=== PATIENT | female | born 1945 | race Caucasian/White ===

== ENCOUNTER 2019-11-19 06:39 | Outpatient (CLI) | payer MEDICARE, SELFPAY ==
[2019-11-19 07:30] LABS: Eosinophils Absolute Auto 0.1 K/mm3 (0-0.3); Eosinophils Percent Auto 2.6 % (0-4.4); Hematocrit 33.1 % (37.0-47.0); Immature Granulocyte Absolute 0.01 K/mm3 (0.00-0.031); Immature Granulocyte Percent A 0.3 % (0-0.5); Lymphocytes Absolute Auto 1.42 K/mm3 (0.9-3.2); Lymphocytes Percent Auto 36.4 % (18.3-44.2); Mean Corpuscular HGB Conc 33.2 g/dl (32-36); Mean Corpuscular Hemoglobin 29.6 pg (26-34); Mean Corpuscular Volume 89.2 fl (80-100); Mean Platelet Volume 8.9 fl (7.4-10.4); Monocytes Absolute Auto 0.4 K/mm3 (0.1-0.6); Monocytes Percent Auto 10.3 % (2.6-8.5); Neutrophils Absolute Auto 1.9 K/mm3 (1.3-6.7); Neutrophils Percent Auto 49.4 % (45.5-73.1); Platelet Count Result 263 k/mm3 (150-375); Red Blood Count 3.71 M/mm3 (4.2-5.4); Red Cell Distribution Width 12.8 % (11.5-14.5); White Blood Count 3.9 K/mm3 (4.5-10.0)
[2019-11-19 07:44] LABS: Alanine Aminotransferase 30 U/L (4-35); Albumin Level 4.2 g/dL (3.5-5.1); Alkaline Phosphatase 45 U/L (38-126); Aspartate Amino Transferase 35 U/L (14-36); Bilirubin,Total 0.2 mg/dL (0.2-1.3); Blood Urea Nitrogen 17 mg/dL (7-17); Calcium 8.8 mg/dL (8.4-10.2); Carbon Dioxide 28 mmol/L (22-30); Chloride 103 mmol/L (98-107); Cholesterol 196 mg/dL (0-200); Estimated Glomerular Filt Rate > 60; Glucose 88 mg/dL (65-105); HDL Direct 48 mg/dL; Potassium 3.8 mmol/L (3.4-5.0); Sodium 136 mmol/L (137-145); Triglycerides 155 mg/dL (<150)
[2019-11-19 07:55] LABS: LDL Cholesterol Direct 117 mg/dL
== END 2019-11-19 06:40 | disposition home or self-care (01) ==
PROVIDERS: PCP Family Medicine; Visit Provider Family Medicine
DX: I10 Essential (primary) hypertension (principal); E78.2 Mixed hyperlipidemia
CPT/HCPCS: 36415; 80053; 80061; 85025

== ENCOUNTER 2021-01-06 00:18 | Day surgery (SDC) | payer MEDICARE, SELFPAY ==
[2021-01-05 16:26] VITALS: BMI 30.7
[2021-01-06] VITALS (9 sets, daily range): BP systolic 123–174; BP diastolic 65–84; PULSE 59–103; RESP 12–20; TEMP 36.7–36.9; O2SAT 95–100; BMI 31.4
--- NOTE | 2021-01-06 08:00 | ECG_ITS ---
Measurements Intervals [place] Rate: 94 P: ID: 0 QRS: 43 QRSD: 89 T: -1 QT: 349 QTc: 439 Interpretive Statements ATRIAL FIBRILLATION BASELINE ARTIFACT- I, II, III, AVR, AVL ABNORMAL ECG Electronically Signed On 01-06-2021 9:40:42 CDT by Jett Haddad D.O.
--- NOTE | 2021-01-06 09:00 | WPDHPUPDATE1 ---
History and Physical Update Update Date/Time: 01/06/21 09:00 am History and Physical has been reviewed, including an updated exam of the patient. There are NO changes in the patient's condition. Risks, benefits, and alternatives have been discussed and questions answered. Patient agrees to proceed with procedure.
--- NOTE | 2021-01-06 09:00 | WPDMODSED ---
Moderate Sedation Note-Pt Data Patient Data Allergies Allergy/AdvReac Type Severity Reaction Status Date / Time Iodinated Contrast Media Allergy Intermediate Hives and Verified 01/06/21 08:52 swelling Home Medications Medication Instructions Recorded Confirmed Type fenofibrate 160 mg tablet 160 mg PO DAILY #90 tablet 09/24/20 01/05/21 Rx rivaroxaban 20 mg tablet 20 mg PO DAILY #30 tablet 10/26/20 01/05/21 Rx ropinirole 0.5 mg tablet 0.5 mg PO BID #180 tablet 11/09/20 01/05/21 Rx acetaminophen 300 mg-codeine 30 mg 1 tablet PO Q6H PRN #120 tablet 12/21/20 01/05/21 Rx tablet DILT-XR 180 mg PO DAILY 01/05/21 01/05/21 History alprazolam 0.25 mg PO TID 01/05/21 01/05/21 History amiodarone 200 mg PO BID 01/05/21 01/05/21 History cetirizine [Zyrtec] 10 mg PO DAILY PRN 01/05/21 01/05/21 History fluticasone propionate [Flonase] 1 spray INTRANASAL DAILY 01/05/21 01/05/21 History metoprolol succinate 50 mg PO DAILY 01/05/21 01/05/21 History psyllium husk [Metamucil] 1 tbsp PO DAILY 01/05/21 01/05/21 History Current Medications: Active Medications Sodium Chloride (Normal Saline Iv) 500 mls @ 30 mls/hr IV CONT .[id number] MARITA Sedation/Anesthesia: No previous sedation/anesthesia problems (including family history). [facility] Past Medical History Medical History Arthritis Arthritis Benign essential HTN Bilateral primary osteoarthritis of knee Chronic pain Chronic pain syndrome Essential (primary) hypertension BROOK (generalized anxiety disorder) Generalized anxiety disorder History of COVID-19 Hyperlipidemia Mixed hyperlipidemia Osteopenia of multiple sites Psychophysiological insomnia RLS (restless legs syndrome) Family History Family History Mother Hypertension Family history of diabetes mellitus in first degree relative, Onset Age: 80 Patient's mother is Father Family history of alcoholism, Onset Age: 60 Family history of diabetes mellitus in first degree relative Patient's father is Social History Social History Social History: Smoking status: Never smoker Second hand tobacco smoke exposure: No Alcohol intake: never Substance use: never Substance use type: does not use Gender identity (if verbalized by the patient): Female Mod Sed Physical Exam Physical Exam Pre Procedural Exam: Normal: Appearance, Eyes, Ears, Nose, Neck, Throat, Airway, Lungs, Heart Size, Heart Rate, Heart Rhythm, Neuro Exam, Abdomen, Liver, Kidneys, Spleen, Breasts, Genitalia, Extremities and Skin Hours since solid foods: 8 Hours since liquid intake: 8 Mallampati Classification: class 1 Internal Medicine - PN: Obj Da Vital Signs Vital Signs: Vital Signs - 24 hr 01/06/21 08:54 01/06/21 09:00 01/06/21 09:05 Temperature 36.7 C Pulse Rate 97 103 H 93 Respiratory Rate 15 15 14 Blood Pressure 166/83 H 174/83 H 149/81 H Pulse Oximetry 100 98 100 01/06/21 09:10 01/06/21 09:15 Temperature 36.9 C Pulse Rate 91 70 Respiratory Rate 15 20 Blood Pressure 141/78 H 144/84 H Pulse Oximetry 100 98 Meds/Results Medications: Active Medications Generic Name Dose Route Start Last Admin Trade Name Freq PRN Reason Stop Dose Admin Sodium Chloride 500 mls @ 30 mls/hr 01/06/21 09:00 Normal Saline Iv IV CONT .[id number] MARITA Labs CBC & Chem 7: 01/06/21 08:41 ASA Classification/Sedation ASA Classification/Sedation ASA Class: I Emergent: No Risks: Risks, benefits and alternatives explained and patient/family accepted plan for sedation. Patient re-evaluated immediately prior to sedation.
--- NOTE | 2021-01-06 09:12 | ECG_ITS ---
Measurements Intervals [place] Rate: 67 P: 54 CT: 192 QRS: 5 QRSD: 107 T: 9 QT: 431 QTc: 456 Interpretive Statements SINUS RHYTHM DELAYED PRECORDIAL R/S TRANSITION BASELINE WANDER- III, AVR, AVL, AVF, V1-V3 BORDERLINE ECG Electronically Signed On 01-06-2021 9:47:20 CDT by Jett Haddad D.O.
--- NOTE | 2021-01-06 09:28 | WPDCARDVER ---
Cardioversion Cardioversion Date of procedure: 01/06/21 Procedure: 1-Moderate sedation that started at 9:04 a.m. and ended at 9:12 a.m. total duration 8 minutes using 4 mg of Versed and 100 mcg of fentanyl. The registered nurse was Hardeep Starkey. 2- electric cardioversion of atrial fibrillation using 200 joules. Pre-op diagnosis: atrial fibrillation Post-op diagnosis: other ( conversion of atrial fibrillation to sinus rhythm.) Indications: Atrial fibrillation with difficulty controlling the heart rate. Description of procedure: After informed consent and after confirming NPO status and after removing his dentures. Also we confirmed that she was taking her anticoagulation and she took it this morning, she was brought [facility]. cardioversion pads applied anteroposteriorly. after that moderate sedation was administered and after achieving adequate sedation 200 joules of cardioversion delivered with successful cardioversion to sinus rhythm. EKG confirms sinus rhythm with a QTC interval of 446 milliseconds. patient tolerated procedure well. Sedation: Moderate sedation Findings: conversion of atrial fibrillation to sinus rhythm Conclusion: successful cardioversion
[2021-01-06] MEDS: ONDANSETRON INJ 4 MG/2 ML VIAL IV PUSH (09:34)
--- NOTE | 2021-01-06 09:34 | PC.NURSE ---
Pt given sips clear water - became nauseated with no emesis. Dr Swift aware - Zofran given. Pt resting at this time. Granddaughter at bedside.
[2021-01-06 09:40] LABS: Anion Gap 13 mmol/L (8-16); Blood Urea Nitrogen 15 mg/dL (7-17); Calcium 10.2 mg/dL (8.4-10.2); Carbon Dioxide 26 mmol/L (22-30); Chloride 100 mmol/L (98-107); Estimated CRCL calculation 39 ml/min; Estimated Glomerular Filt Rate 54; Glucose 100 mg/dL (65-110); Magnesium 2.1 mg/dL (1.6-2.3); Potassium 3.7 mmol/L (3.4-5.0); Sodium 139 mmol/L (137-145)
--- NOTE | 2021-01-06 11:43 | SUR.PHASEII ---
1045 - IV d/c'd, catheter intact. Discharge instructions reviewed with patient and granddaughter with stated understanding. No further nausea or vomiting. Discharged via wheelchair to personal vehicle with adult grandaughter driving.
== END 2021-01-06 10:45 | disposition home or self-care (01) ==
PROVIDERS: PCP Family Medicine; Visit Provider Internal Medicine Cardiovascular Disease
PROC: 5A2204Z Restoration of Cardiac Rhythm, Single (ICD-10-PCS; principal; 2021-01-06 09:30)
DX: I48.0 Paroxysmal atrial fibrillation (principal); I10 Essential (primary) hypertension; E78.1 Pure hyperglyceridemia; F41.8 Other specified anxiety disorders; Z86.16 Personal history of COVID-19; Z79.01 Long term (current) use of anticoagulants
CPT/HCPCS: 36415; 80048; 83735; 92960; J2250; J2405; J3010; J7040

== ENCOUNTER 2021-01-27 09:17 | Outpatient (CLI) | payer MEDICARE, SELFPAY ==
--- NOTE | ~2021-01-27 | MM_ITS ---
EXAMINATION: MM screening [facility] BI w grant HISTORY: Screening mammogram TECHNIQUE: Craniocaudal and mediolateral oblique 3-D tomosynthesis images were obtained and synthetic 2-D images were generated. CAD analysis was submitted and interpreted. COMPARISON: 05/01/2019, 05/01/2017, 03/07/2017 BREAST PARENCHYMAL COMPOSITION: There are scattered areas of fibroglandular density. FINDINGS: There is no evidence of suspicious mass, calcification, or architectural distortion to sugg est malignancy in either breast. There has been no suspicious interval change. IMPRESSION: 1. No mammographic evidence of malignancy. 2. Recommend routine screening mammography in one year. BI-RADS Category 1: Negative Reviewed, dictated and finalized at location A.
== END 2021-01-27 09:18 | disposition home or self-care (01) ==
LOC: ANHIMG 09:21
PROVIDERS: PCP Family Medicine; Visit Provider Family Medicine
DX: Z12.31 Encounter for screening mammogram for malignant neoplasm of breast (principal)
CPT/HCPCS: 77063; 77067

== ENCOUNTER 2021-02-03 08:15 | Outpatient (CLI) | payer MEDICARE, SELFPAY ==
--- NOTE | 2021-03-02 14:59 | WPDSLEEPSTUD ---
Sleep Study Date of Study: 02/03/21 Ordering Provider: Jeanette Swift MD Interpreting Physician: Emily Goldberg MD Sleep Study Type: Split Polysomnogram Height: 1.52 m Weight: 72.575 kg Body Mass Index: 31.2 Neck Circumference (inches): 15 Hoffman: 5 Reason for Sleep Study Hypersomnolence Sleep History Ava Red is a 75 year old female with occasional snoring however she does not think it is loud enough that others complain about it. She does not awaken from sleep feeling short of breath. She occasionally awakens at night with heartburn, belching or coughing. She occasionally has trouble sleeping with a cold. She does not wake up gasping for breath at night or have breathing problems at night observed by others. She does not sweat excessively at night. She occasionally notices her heart pounding or beating irregularly at night. She does not fall asleep during the day, does not fall asleep involuntarily or while driving. She does not have loss of muscle tone with strong emotion. She does not have daytime difficulties due to excessive sleepiness. She does not feel paralyzed on waking or falling asleep and does not have vivid dreamlike scenes upon awakening or falling asleep. She does not feel afraid to go to sleep. She does not have nightmares. She does not remember her dreams. She does not have racing thoughts. She occasionally feels sad or depressed. She constantly has anxiety. She occasionally has muscular tension. She does not notice part of her body jerking and she does not kick at night. She constantly has crawling and aching feelings in her legs, constantly has leg pain during the night, constantly has morning jaw pain and constantly grinds her teeth during sleep. She occasionally is bothered by pain during the day, occasionally awakened by pain at night, occasionally wakes up feeling stiff in the morning with sore achy muscles. She constantly wakes up with pain in the neck and spine. She takes sedatives. She reports a 20 lb weight increase in the last year. She has heart disease, hypertension, depression and atrial fibrillation. She also has nasal allergies. Normal bedtime is 9:00 p.m. falling asleep within 10 minutes typically waking once at night to use the bathroom. She is able to return her to sleep quickly, within a minute. She wakes at 6 in the morning. Her weekend schedule is the same. She estimates getting 8 hours of sleep at night. She does not generally take naps in the afternoon or evening. A short nap is not refreshing. She feels good upon awakening. She feels better in the afternoon and evening compared to the morning. Habits: No tobacco, caffeine, alcohol, or recreational drugs. [facility] Past Medical History Medical History (Updated 03/02/21 @ 15:02 by Emily Goldberg MD) Arthritis Arthritis Arthritis Arthritis Atrial fibrillation and flutter Benign essential HTN Benign essential HTN Benign essential HTN Bilateral primary osteoarthritis of knee Chronic pain Chronic pain Chronic pain Chronic pain syndrome Essential (primary) hypertension BROOK (generalized anxiety disorder) BROOK (generalized anxiety disorder) BROOK (generalized anxiety disorder) Generalized anxiety disorder History of COVID-19 History of COVID-19 History of COVID-19 Hyperlipidemia Hyperlipidemia Hyperlipidemia Mixed hyperlipidemia Osteopenia of multiple sites Psychophysiological insomnia RLS (restless legs syndrome) Family History Family History Mother Hypertension Family history of diabetes mellitus in first degree relative, Onset Age: 80 Patient's mother is Father Family history of alcoholism, Onset Age: 60 Family history of diabetes mellitus in first degree relative Patient's father is Social History Social History Social History: Smoking stat
[2021-03-02 15:38] VITALS: BMI 31.2
== END 2021-02-04 06:17 | disposition home or self-care (01) ==
LOC: ANHCSM 08:21
PROVIDERS: PCP Family Medicine; Visit Provider Internal Medicine Cardiovascular Disease
DX: G47.10 Hypersomnia, unspecified (principal); I48.91 Unspecified atrial fibrillation; G25.81 Restless legs syndrome; Z68.31 Body mass index [BMI] 31.0-31.9, adult; I48.92 Unspecified atrial flutter
CPT/HCPCS: 95810

== ENCOUNTER → 2021-11-02 09:20 | Outpatient (CLI) | payer MEDICARE, SELFPAY ==
--- NOTE | ~2021-11-02 | DEXA_ITS ---
Bone Density Report Name: ESTEFANIA AVITIA I Age: 76 Sex: Female Ethnicity: White Date of : 1945 Indication: osteopenia; height loss; postmenopausal Referring Provider: KRISTEL LAMBERT Study: Bone densitometry was performed. Exam Date: November 02, 2021 Accession number: [id number] Bone Density: Region BMD T-score Z-score Classification AP Spine (L1-L4) 0.854 -1.8 0.7 Osteopenia Femoral Neck (Left) 0.609 -2.2 -0.1 Osteopenia Total Hip (Left) 0.741 -1.6 0.2 Osteopenia Femoral Neck (Right) 0.653 -1.8 0.3 Osteopenia Total Hip (Right) 0.744 -1.6 0.2 Osteopenia Total Hip Mean 0.743 -1.6 0.2 Osteopenia World Health Organization criteria for BMD impression classify patients as: Normal (T-score at or above -1.0), Osteopenia (T-score between -1.0 and -2.5), or Osteoporosis (T-score at or below -2.5). 10-year Fracture Risk(1): Major Osteoporotic Fracture 13% Hip Fracture 3.5% Reported Risk Factors: [place] (), Neck BMD=0.609, BMI=33.0 (1) FRAX(R) Version 3.08. Fracture probability calculated for an untreated patient. Fracture probability may be lower if the patient has received treatment. Previous Exams: Region Exam Age BMD T-score BMD Change BMD Change Date g/cm2 vs Baseline vs Previous AP Spine(L1-L4) 11/02/2021 76 0.854 -1.8 -0.049* -0.049* 12/10/2017 72 0.904 -1.3 Total Hip(Left) 11/02/2021 76 0.741 -1.6 -0.010 -0.010 12/10/2017 72 0.751 -1.6 Total Hip(Right) 11/02/2021 76 0.744 -1.6 -0.002 -0.002 12/10/2017 72 0.746 -1.6 *Denotes significance at 95% confidence level, LSC for AP Spine = 0.022 g/cm2, LSC for Total Hip = 0.027 g/cm2 Clinical Information Provided by Patient: Patient maximum height was 61.5 Menopause Age: 45 No regular weight bearing exercise Drinks caffeinated beverages Onset of menses at age 13 Number of children 1 Impression: The patient has low bone mass, based on the Left Femoral Neck T-score. The patient has an estimated ten-year risk of hip fracture of 3.5% and an estimated ten-year risk of major fracture of 13%, based on the WHO FRAX algorithm. The BMD for the AP Spine(L1-L4) decreased, changing by -0.049 since the last DXA exam. Discussion: BONE DENSITY IS LOW AT ONE OR MORE SKELETAL SITES. THE PATIENT'S BMD AND CLINICAL RISK FACTORS CONTRIBUTE TO THIS PATIENT'S INCREASED RISK OF FRACTURE. This patient's lowest T-score is lo
== END ==
PROVIDERS: PCP Family Medicine; Visit Provider Family Medicine
DX: Z78.0 Asymptomatic menopausal state (principal); M85.88 Other specified disorders of bone density and structure, other site; M85.851 Other specified disorders of bone density and structure, right thigh; M85.852 Other specified disorders of bone density and structure, left thigh
CPT/HCPCS: 77080

== ENCOUNTER → 2022-04-04 14:50 | Outpatient (CLI) | payer MEDICARE, SELFPAY ==
--- NOTE | ~2022-04-04 | MM_ITS ---
EXAMINATION: MM screening [facility] BI w grant HISTORY: Screening mammogram TECHNIQUE: Craniocaudal and mediolateral oblique 3-D tomosynthesis images were obtained and synthetic 2-D images were generated. CAD analysis was submitted and interpreted. COMPARISON: 01/27/2021, 05/01/2019, 03/07/2017 BREAST PARENCHYMAL COMPOSITION: There are scattered areas of fibroglandular density. FINDINGS: No suspicious mass, calcification, or architectural distortion are identified in either ileana ast to suggest malignancy. There has been no suspicious interval change. IMPRESSION: 1. No mammographic evidence of malignancy. 2. Recommend routine screening mammography in one year. BI-RADS Category 1: Negative Reviewed, dictated and finalized at location A.
== END ==
PROVIDERS: PCP Family Medicine; Visit Provider Family Medicine
DX: Z12.31 Encounter for screening mammogram for malignant neoplasm of breast (principal)
CPT/HCPCS: 77063; 77067

== ENCOUNTER 2022-04-12 13:40 | Outpatient (CLI) | payer MEDICARE, SELFPAY ==
--- NOTE | ~2022-04-12 | XR_ITS ---
EXAMINATION: XR chest 2V Exam Date/Time: 04/12/2022 14:10 CDT HISTORY: cough Comparison: None available. RESULT: Lines, tubes, and devices: None. Lungs and pleura: Clear. Cardiomediastinal silhouette: Aortic ectasia. Other: No acute osseous or upper abdominal finding. Thoracic scoliosis. Old healed right anterior si xth rib fracture. IMPRESSION: No acute cardiopulmonary process. Reviewed, dictated and finalized at location K.
== END 2022-04-12 13:41 | disposition home or self-care (01) ==
LOC: ANHIMG 13:46
PROVIDERS: PCP Family Medicine; Visit Provider Family Medicine
DX: R05.9 Cough, unspecified (principal)
CPT/HCPCS: 71046

== ENCOUNTER 2022-04-27 09:01 | Outpatient (CLI) | payer MEDICARE, SELFPAY ==
--- NOTE | 2022-04-27 12:22 | WPDPFTINT ---
PFT Procedure Performed PFT Procedure Performed Plethysmography (Lung Vol) Diffusing Cap (DLCO) Flow Vol Loop Spirometry w/o Bronchodil PFT Interpretation This is a pulmonary function test with spirometry, plethysmography and diffusing capacity. The test was performed and results interpreted in accordance with the 2019 and 2005 ATS/ERS Task Force guidelines respectively using the Global Lung Function Initiative-2012 reference equations. Patient demonstrated good effort and cooperation. Reproducibility criteria were met. The quality of the spirometry maneuver was Grade A. Findings: Spirometry: The contour the inspiratory and expiratory flow tracing are normal. The FVC is 2.20 L, 98% predicted. The FEV1 is 1.73 L, 99% predicted. The FEV1: FVC ratio 79%. Plethysmography: The total lung capacity is 4.22 L, 98% predicted. Functional residual capacity is 2.15 L, 88% predicted. The residual volume is 1.93 L, 94% predicted. Diffusing capacity: The diffusing capacity unadjusted for hemoglobin and carboxyhemoglobin is 14.4, 80% predicted. The diffusing capacity adjusted for alveolar volume is 3.86, 87% predicted. Impression: The spirometry is normal without evidence of an obstructive abnormality. The lung volumes are normal. The diffusing capacity is normal. There are no prior studies for comparison
== END 2022-04-27 09:02 | disposition home or self-care (01) ==
LOC: ANHPFT 09:03
PROVIDERS: PCP Family Medicine; Visit Provider Internal Medicine Cardiovascular Disease
DX: Z51.81 Encounter for therapeutic drug level monitoring (principal); Z79.899 Other long term (current) drug therapy
CPT/HCPCS: 94375; 94726; 94729

== ENCOUNTER 2022-05-25 10:45 | Outpatient (CLI) | payer MEDICARE, SELFPAY ==
--- NOTE | ~2022-05-25 | XR_ITS ---
Right ankle Technique: AP, oblique, and lateral views were obtained. Clinical History: Pain Findings: No acute fracture or dislocation is seen. Osseous alignment is anatomic. Ankle mortise and other visualized joint spaces are preserved. There is mild spurring at the anterior aspect of the tib iotalar joint. Plantar calcaneal spurring. Mild soft tissue swelling noted about the ankle. Impression: No fracture or dislocation. Mild degenerative changes, as above. Mild soft tissue swelling about the ankle. Reviewed, dictated and finalized at location [] KEY DRIVER Impression: No fracture or dislocation. Mild degenerative changes, as above. Mild soft tissue swelling about the ankle.
== END 2022-05-25 10:46 | disposition home or self-care (01) ==
LOC: ANHLAB 10:48
PROVIDERS: PCP Family Medicine; Visit Provider Family Medicine
DX: M25.471 Effusion, right ankle (principal)
CPT/HCPCS: 73610

== ENCOUNTER 2022-09-01 07:33 | Outpatient (CLI) | payer MEDICARE, SELFPAY ==
[2022-09-01 07:52] LABS: Basophils Absolute Auto 0.1 K/mm3 (0.0-0.1); Basophils Percent Auto 1.3 % (0.2-1.2); Eosinophils Absolute Auto 0.1 K/mm3 (0-0.3); Eosinophils Percent Auto 2.9 % (0-4.4); Immature Granulocyte Absolute 0.02 K/mm3 (0.00-0.031); Immature Granulocyte Percent A 0.4 % (0-0.5); Lymphocytes Absolute Auto 1.42 K/mm3 (0.9-3.2); Lymphocytes Percent Auto 29.7 % (18.3-44.2); Mean Corpuscular HGB Conc 31.4 g/dl (32-36); Mean Corpuscular Hemoglobin 28.1 pg (26-34); Mean Corpuscular Volume 89.5 fl (80-100); Mean Platelet Volume 8.5 fl (7.4-10.4); Monocytes Absolute Auto 0.5 K/mm3 (0.1-0.6); Monocytes Percent Auto 11.1 % (2.6-8.5); Neutrophils Absolute Auto 2.6 K/mm3 (1.3-6.7); Neutrophils Percent Auto 54.6 % (45.5-73.1); Platelet Count Result 311 k/mm3 (150-375); Red Blood Count 3.91 M/mm3 (4.2-5.4); Red Cell Distribution Width 13.7 % (11.5-14.5); White Blood Count 4.8 K/mm3 (4.5-10.0)
[2022-09-01 08:02] LABS: Alanine Aminotransferase 47 U/L (6-35); Albumin Level 4.4 g/dL (3.5-5.1); Alkaline Phosphatase 69 U/L (38-126); Anion Gap 6 mmol/L (8-16); Aspartate Amino Transferase 39 U/L (14-36); Bilirubin,Total 0.5 mg/dL (0.2-1.3); Blood Urea Nitrogen 14 mg/dL (7-17); Calcium 8.7 mg/dL (8.4-10.2); Carbon Dioxide 31 mmol/L (22-30); Chloride 103 mmol/L (98-107); Cholesterol 208 mg/dL (0-200); Estimated Glomerular Filt Rate 54; Glucose 103 mg/dL (65-110); HDL Direct 54 mg/dL; Potassium 4.3 mmol/L (3.4-5.0); Sodium 140 mmol/L (137-145); Triglycerides 164 mg/dL (<150)
[2022-09-01 08:13] LABS: LDL Cholesterol Direct 109 mg/dL
== END 2022-09-01 07:34 | disposition home or self-care (01) ==
LOC: ANHLAB 07:35
PROVIDERS: PCP Family Medicine; Visit Provider Physician Assistant
DX: I10 Essential (primary) hypertension (principal); E78.5 Hyperlipidemia, unspecified
CPT/HCPCS: 36415; 80053; 80061; 85025

== ENCOUNTER 2022-10-19 07:12 | Outpatient (CLI) | payer MEDICARE, SELFPAY ==
[2022-10-19 08:57] LABS: Alanine Aminotransferase 63 U/L (6-35); Albumin Level 4.4 g/dL (3.5-5.1); Alkaline Phosphatase 105 U/L (38-126); Anion Gap 7 mmol/L (8-16); Aspartate Amino Transferase 32 U/L (14-36); Bilirubin,Total 0.6 mg/dL (0.2-1.3); Blood Urea Nitrogen 12 mg/dL (7-17); Calcium 8.7 mg/dL (8.4-10.2); Carbon Dioxide 30 mmol/L (22-30); Chloride 102 mmol/L (98-107); Estimated Glomerular Filt Rate > 60; Glucose 99 mg/dL (65-110); Potassium 3.4 mmol/L (3.4-5.0); Sodium 139 mmol/L (137-145)
== END 2022-10-19 07:13 | disposition home or self-care (01) ==
PROVIDERS: PCP Family Medicine; Referring Provider Internal Medicine Cardiovascular Disease; Visit Provider Physician Assistant
DX: R74.8 Abnormal levels of other serum enzymes (principal); Z51.81 Encounter for therapeutic drug level monitoring; Z79.899 Other long term (current) drug therapy
CPT/HCPCS: 36415; 80053; 84443

== ENCOUNTER 2022-10-24 09:36 | Outpatient (CLI) | payer MEDICARE, SELFPAY ==
[2022-10-24 10:33] LABS: Iron 33 ug/dL (37-170)
[2022-10-24 10:42] LABS: Percent Iron Saturation 8 % (20-50)
== END 2022-10-24 09:37 | disposition home or self-care (01) ==
PROVIDERS: PCP Family Medicine; Referring Provider Internal Medicine Cardiovascular Disease; Visit Provider Physician Assistant
DX: D64.9 Anemia, unspecified (principal)
CPT/HCPCS: 36415; 82607; 83540; 83550

== ENCOUNTER 2023-03-05 07:46 | Outpatient (CLI) | payer MEDICARE, SELFPAY ==
[2023-03-05 08:24] LABS: Basophils Absolute Auto 0.1 K/mm3 (0.0-0.1); Basophils Percent Auto 0.8 % (0.2-1.2); Eosinophils Absolute Auto 0.1 K/mm3 (0-0.3); Eosinophils Percent Auto 1.8 % (0-4.4); Hematocrit 37.7 % (37.0-47.0); Hemoglobin 12.1 g/dL (12.0-15.0); Immature Granulocyte Absolute 0.04 K/mm3 (0.00-0.031); Immature Granulocyte Percent A 0.7 % (0-0.5); Lymphocytes Absolute Auto 1.25 K/mm3 (0.9-3.2); Lymphocytes Percent Auto 20.9 % (18.3-44.2); Mean Corpuscular HGB Conc 32.1 g/dl (32-36); Mean Corpuscular Hemoglobin 28.5 pg (26-34); Mean Corpuscular Volume 88.9 fl (80-100); Mean Platelet Volume 9.1 fl (7.4-10.4); Monocytes Absolute Auto 0.6 K/mm3 (0.1-0.6); Monocytes Percent Auto 10.4 % (2.6-8.5); Neutrophils Absolute Auto 3.9 K/mm3 (1.3-6.7); Neutrophils Percent Auto 65.4 % (45.5-73.1); Platelet Count Result 237 k/mm3 (150-375); Red Blood Count 4.24 M/mm3 (4.2-5.4)
[2023-03-05 08:53] LABS: Alanine Aminotransferase 22 U/L (6-35); Albumin Level 4.5 g/dL (3.5-5.1); Alkaline Phosphatase 107 U/L (38-126); Anion Gap 9 mmol/L (8-16); Aspartate Amino Transferase 29 U/L (14-36); Bilirubin,Total 0.5 mg/dL (0.2-1.3); Blood Urea Nitrogen 19 mg/dL (7-17); Calcium 9.2 mg/dL (8.4-10.2); Carbon Dioxide 29 mmol/L (22-30); Chloride 100 mmol/L (98-107); Cholesterol 170 mg/dL (0-200); Estimated Glomerular Filt Rate > 60; Glucose 106 mg/dL (65-110); HDL Direct 48 mg/dL; Potassium 3.8 mmol/L (3.4-5.0); Sodium 138 mmol/L (137-145); Triglycerides 174 mg/dL (<150); Uric Acid 5.2 mg/dL (2.5-7.5)
[2023-03-05 09:04] LABS: LDL Cholesterol Direct 81 mg/dL
[2023-03-07 10:30] LABS: ANA Cascade Screen Positive (Negative)
[2023-03-07 11:58] LABS: Chromatin (Nucleosomal) Ab <1.0; Chromatin Antibody Charge YES; DNA (ds) Antibody Charge YES; RNP Antibody <1.0; RNP Antibody Charge YES; Sm Antibody <1.0; Sm Antibody Charge YES; Sm/RNP Antibody <1.0; Sm/RNP Antibody Charge YES
[2023-03-07 12:44] LABS: JO1 Antibody Charge YES; Jo-1 Antibody <1.0; SCL70 Antibody Charge YES; SSA Antibody Charge YES; SSB Antibody Charge YES; Sjogren's Antibody (SS-B) <1.0
[2023-03-08 05:37] LABS: Centromere Antibody Charge YES; Centromere B Antibody >8.0; Ribosomal Antibody <1.0; Ribosomal Antibody Charge YES
== END 2023-03-05 07:47 | disposition home or self-care (01) ==
PROVIDERS: PCP Family Medicine; Referring Provider Internal Medicine Cardiovascular Disease; Visit Provider Family Medicine
DX: D64.9 Anemia, unspecified (principal); R74.8 Abnormal levels of other serum enzymes; I10 Essential (primary) hypertension; E78.2 Mixed hyperlipidemia; E79.0 Hyperuricemia without signs of inflammatory arthritis and tophaceous disease
CPT/HCPCS: 36415; 80053; 80061; 84550; 85025; 86038

== ENCOUNTER → 2023-06-14 10:59 | Outpatient (CLI) | payer MEDICARE, SELFPAY ==
--- NOTE | ~2023-06-14 | MM_ITS ---
EXAMINATION: MM screening [facility] BI w grant HISTORY: Screening mammogram TECHNIQUE: Craniocaudal and mediolateral oblique 3-D tomosynthesis images were obtained and synthetic 2-D images were generated. CAD analysis was submitted and interpreted. COMPARISON: 04/04/2022, 01/27/2021, 05/01/2019 BREAST PARENCHYMAL COMPOSITION: There are scattered areas of fibroglandular density. FINDINGS: No suspicious mass, calcification, or architectural distortion are identified in either ileana ast to suggest malignancy. There has been no suspicious interval change. IMPRESSION: 1. No mammographic evidence of malignancy. 2. Recommend routine screening mammography in one year. BI-RADS Category 1: Negative Reviewed, dictated and finalized at location A. F SORTER
== END ==
PROVIDERS: PCP Family Medicine; Visit Provider Family Medicine
DX: Z12.31 Encounter for screening mammogram for malignant neoplasm of breast (principal)
CPT/HCPCS: 77063; 77067

== ENCOUNTER 2023-06-28 14:00 | Outpatient (CLI) | payer MEDICARE, SELFPAY ==
--- NOTE | ~2023-06-28 | XR_ITS ---
XR knee LT 3V DATE: 06/28/2023 14:28 INDICATION: Generalized left knee pain TECHNIQUE: [place] and standing AP and lateral views COMPARISON: None FINDINGS: There is osteopenia. Is mild varus deformity. There is tricompartment osteoarthritis, most severe at the patellofemoral and medial compartments. There is prominent chondrocalcinosis. No fracture or dislocation or joint effusion, periosteal reaction or bone destruction is detected. IMPRESSION: Tricompartment osteophytes, most severe at the medial and patellofemoral compartments Prominent chondrocalcinosis Reviewed, dictated and finalized at location L. E NAVIGATOR IMPRESSION: Tricompartment osteophytes, most severe at the medial and patellofe moral compartments Prominent chondrocalcinosis
--- NOTE | ~2023-06-28 | XR_ITS ---
XR knee RT 3V DATE: 06/28/2023 14:28 INDICATION: Generalized knee pain TECHNIQUE: [place] and standing AP and lateral views COMPARISON: None FINDINGS: There is osteopenia. There is mild varus deformity. There is tricompartment osteoarthritis, most severe at the patellofemoral and medial compartments. There is chondrocalcinosis. No fracture or dislocation or joint effusion, periosteal reaction or bone destruction is evident. IMPRESSION: Tricompartment osteoarthritis, most prominent at the patellofemoral and medial compartmen ts Chondrocalcinosis Reviewed, dictated and finalized at location L. [employer] SUPERVISOR IMPRESSION: Tricompartment osteoarthritis, most prominent at the patellofemoral and medial compartments Chondrocalcinosis
== END 2023-06-28 14:01 | disposition home or self-care (01) ==
PROVIDERS: PCP Family Medicine; Visit Provider Family Medicine
DX: M25.762 Osteophyte, left knee (principal); M17.11 Unilateral primary osteoarthritis, right knee; M11.261 Other chondrocalcinosis, right knee; M11.262 Other chondrocalcinosis, left knee
CPT/HCPCS: 73562

== ENCOUNTER 2023-12-28 07:42 | Outpatient (CLI) | payer MEDICARE, SELFPAY ==
[2023-12-28 08:24] LABS: Basophils Absolute Auto 0.1 K/mm3 (0.0-0.1); Eosinophils Absolute Auto 0.1 K/mm3 (0-0.3); Eosinophils Percent Auto 2.2 % (0-4.4); Hematocrit 42.5 % (37.0-47.0); Hemoglobin 13.4 g/dL (12.0-15.0); Immature Granulocyte Absolute 0.02 K/mm3 (0.00-0.031); Immature Granulocyte Percent A 0.3 % (0-0.5); Lymphocytes Absolute Auto 1.81 K/mm3 (0.9-3.2); Mean Corpuscular HGB Conc 31.5 g/dl (32-36); Mean Corpuscular Hemoglobin 28.2 pg (26-34); Mean Corpuscular Volume 89.3 fl (80-100); Mean Platelet Volume 8.8 fl (7.4-10.4); Monocytes Absolute Auto 0.7 K/mm3 (0.1-0.6); Monocytes Percent Auto 11.2 % (2.6-8.5); Neutrophils Absolute Auto 3.5 K/mm3 (1.3-6.7); Neutrophils Percent Auto 56.3 % (45.5-73.1); Platelet Count Result 237 k/mm3 (150-375); Red Blood Count 4.76 M/mm3 (4.2-5.4); Red Cell Distribution Width 13.2 % (11.5-14.5); White Blood Count 6.2 K/mm3 (4.5-10.0)
[2023-12-28 08:30] LABS: Alanine Aminotransferase 22 U/L (6-35); Albumin Level 4.7 g/dL (3.5-5.1); Alkaline Phosphatase 121 U/L (38-126); Anion Gap 10 mmol/L (4-12); Aspartate Amino Transferase 26 U/L (14-36); Bilirubin,Total 0.8 mg/dL (0.2-1.3); Blood Urea Nitrogen 17 mg/dL (7-17); Calcium 9.1 mg/dL (8.4-10.2); Carbon Dioxide 29 mmol/L (22-30); Chloride 99 mmol/L (98-107); Cholesterol 154 mg/dL (0-200); Estimated Glomerular Filt Rate > 60; Glucose 108 mg/dL (65-110); HDL Direct 43 mg/dL; Potassium 4.3 mmol/L (3.4-5.0); Sodium 138 mmol/L (137-145); Triglycerides 208 mg/dL (<150)
[2023-12-28 08:40] LABS: LDL Cholesterol Direct 82 mg/dL
== END 2023-12-28 07:43 | disposition home or self-care (01) ==
PROVIDERS: PCP Family Medicine; Visit Provider Family Medicine
DX: I10 Essential (primary) hypertension (principal); E78.2 Mixed hyperlipidemia
CPT/HCPCS: 36415; 80053; 80061; 85025